=== PATIENT | female | born 1980 | race Caucasian/White ===

== ENCOUNTER 2018-05-08 07:34 | Day surgery (SDC) | payer BC ==
[~2018-05-08 07:34] MED LIST: Lactated Ringers 1,000 ML IV SCH
[2018-05-08] MEDS ORDERED: Ketorolac 30 MG/ML SDV IVPUSH ONE (08:30)
[2018-05-08] MEDS ORDERED: Propofol 200 MG/20 ML SDV IV ONE (08:30)
[2018-05-08] MEDS ORDERED: HYDROmorphone 2 MG/ML SDV IV ONE (08:30)
--- NOTE | 2018-05-08 09:42 | PCM.OPNOTE ---
- General Post-Op/Procedure Note Date of Surgery/Procedure: 05/08/18 Operative Procedure(s): c scope with bx Findings: normal terminal ileum normal colon Pre Op Diagnosis: hx of Crohn's disease Post-Op Diagnosis: Same Anesthesia Technique: SAYDA Primary Surgeon: William Haines Anesthesia Provider: Emile Leo Pathology: terminal ileum Complications: None Condition: Good Free Text/Narrative:: see dictation
--- NOTE | 2018-05-08 09:57 | OR ---
DATE OF OPERATION: 05/08/2018 SURGEON: William Haines MD PROCEDURE PERFORMED: Colonoscopy. PREOPERATIVE DIAGNOSIS: History of Crohn's. POSTOPERATIVE DIAGNOSIS: Normal exam. INDICATIONS FOR PROCEDURE: This is a 37-year-old white female who has a history of Crohn disease. She was offered and accepted screening colonoscopy. DESCRIPTION OF PROCEDURE: After an excellent IV sedation was administered, digital rectal exam was performed. No marked abnormality was noted. Flexible colonoscope was inserted and advanced to the cecum without difficulty. The prep was excellent. The terminal ileum was then intubated and the following findings were noted. Terminal ileum was normal. Random biopsies were taken. Ascending colon, unremarkable. Transverse colon, unremarkable. Descending colon, unremarkable. Sigmoid and rectum unremarkable. Colon was deflated as the scope was removed. The patient tolerated procedure well and was taken to the recovery in good condition. Results by letter. /[id number] /MODL
== END 2018-05-08 10:40 | disposition home or self-care (01) ==
LOC: FB.SDS 07:34
PROVIDERS: ATTEND Surgery
DX: Z12.11 Encounter for screening for malignant neoplasm of colon (principal); K63.89 Other specified diseases of intestine; F17.210 Nicotine dependence, cigarettes, uncomplicated; Z79.899 Other long term (current) drug therapy; Z98.890 Other specified postprocedural states
CPT/HCPCS: 45380; 81025; 88305; J1170; J1885; J2704; J7120